=== PATIENT | female | born 1980 | race Caucasian/White ===

== ENCOUNTER 2017-01-20 00:11 | Emergency (ER) | payer OTHER ==
[2017-01-20 00:19] VITALS: BP 122/75
[2017-01-20] MEDS ORDERED: DIPHENHYDRAMINE HCL 50 MG/ML VIAL IV ONE (00:28)
[2017-01-20] MEDS ORDERED: METHYLPREDNISOLONE INJ 125 MG/2 ML SDV IV ONE (00:28)
[2017-01-20] MEDS ORDERED: FAMOTIDINE INJ/PF 20 MG/2 ML SDV IV ONE (00:28)
--- NOTE | 2017-01-20 00:29 | ER Document Report ---
ED Allergic Reaction - General Chief Complaint: Allergic Reaction Stated Complaint: POSSIBLE ALLERGIC REACTION Time Seen by Provider: 01/20/17 00:22 Notes: Patient is a 37-year-old female, at 24 weeks gestation, the comes emergency department for chief complaint of an allergic reaction. She states she has a rash over her arms, abdomen, back, neck, and face. She states that she got the sensation of irritation in her throat as well just prior to arrival. She states the rash is actually started to reduce from before. She denies shortness of breath. She has not taken anything for the rash. She states she thinks she is breaking out in a reaction to hair spray. TRAVEL OUTSIDE OF THE [place] IN LAST 30 DAYS: No - Related Data Allergies/Adverse Reactions: erythromycin base Allergy (Verified 01/20/17 01:39) Penicillins Allergy (Verified 01/20/17 01:39) Past Medical History - General Information source: Patient - Social History Smoking Status: Never Smoker Frequency of alcohol use: None Drug Abuse: None Lives with: Family Family History: Reviewed & Not Pertinent Patient has suicidal ideation: No Patient has homicidal ideation: No - Medical History Medical History: Negative Renal/ Medical History: Denies: Hx Peritoneal Dialysis Surgical Hx: Negative - Immunizations Immunizations up to date: Yes Hx Diphtheria, Pertussis, Tetanus Vaccination: Yes Review of Systems - Review of Systems Constitutional: No symptoms reported EENT: See HPI Cardiovascular: No symptoms reported Respiratory: No symptoms reported Gastrointestinal: No symptoms reported Genitourinary: No symptoms reported Female Genitourinary: No symptoms reported Musculoskeletal: No symptoms reported Skin: See HPI Hematologic/Lymphatic: No symptoms reported Neurological/Psychological: No symptoms reported Physical Exam - Vital signs Vitals: Temp Pulse Resp BP Pulse Ox 98.1 F 71 18 122/75 100 01/20/17 00:17 01/20/17 00:17 01/20/17 00:17 01/20/17 00:17 01/20/17 00:17 Interpretation: Normal - General General appearance: Alert, Anxious In distress: None - HEENT Head: Normocephalic, Atraumatic Eyes: Normal Conjunctiva: Normal Extraocular movements intact: Yes Eyelashes: Normal Pupils: PERRL Ears: Normal External canal: Normal Tympanic membrane: Normal Sinus: Normal Nasal: Normal Mouth/Lips: Other - There is minimal swelling noted at the edge of the right upper lip, no tongue swelling, no uvular edema, no soft tissue swelling of the pharynx, otherwise no facial swelling noted Mucous membranes: Normal Pharynx: Normal Neck: Normal - Respiratory Respiratory status: No respiratory distress Chest status: Nontender Breath sounds: Normal Chest palpation: Normal - Cardiovascular Rhythm: Regular Heart sounds: Normal auscultation Murmur: No - Abdominal Inspection: Normal, Gravid female Distension: No distension Bowel sounds: Normal Tenderness: Nontender. No: Tender, Guarding Organomegaly: No organomegaly - Back Back: Normal, Nontender - Extremities General upper extremity: Normal inspection, Nontender, Normal color, Normal ROM , Normal temperature General lower extremity: Normal inspection, Nontender, Normal color, Normal ROM , Normal temperature, Normal weight bearing. No: Dev's sign - Neurological Neuro grossly intact: Yes Cognition: Normal Orientation: AAOx4 [place] Coma Scale Eye Opening: Spontaneous Khushi Coma Scale Verbal: Oriented [place] Coma Scale Motor: Obeys Commands [place] Coma Scale Total: 15 Speech: Normal Motor strength normal: LUE, RUE, LLE, RLE Sensory: Normal - Psychological Associated symptoms: Normal affect, Normal mood - Skin Skin Temperature: Warm Skin Moisture: Dry Skin Color: Normal Skin irregularity: Rash - Scattered urticaria over the neck, back, abdomen, and arms Course - Re-evaluation Re-evalutation: Patient was scattered urticaria, she also has minimal swelling of the right upper lip, airway is clear, lungs clear, patient is anxious but otherwise well- appearing. I discussed with patient, patient will be given Solu-Medrol, Benadryl, Pepcid, discussed that patient will be very closely evaluated and if she worsens in any way with any facial swelling or oral swelling that she will be immediately given epinephrine despite for her own safety. Patient states agreement with this plan. Discussed with Dr. Ansari. Patient monitored closely. She was monitored for over 3 hours in the emergency department. I reevaluated her 4 more times. She had resolution of the swelling of the upper lip, rash almost completely disappeared, symptoms of itching resolved. Patient is asking to leave now. I discussed treatment, and discussed follow-up, discussed return precautions in detail, patient states she will return immediately if she has return of symptoms or any new concerning symptoms. - Vital Signs Vital signs: Temp Pulse Resp BP Pulse Ox 98.1 F 71 18 122/75 99 01/20/17 00:17 01/20/17 00:17 01/20/17 00:17 01/20/17 00:17 01/20/17 03:45 Discharge - Discharge Clinical Impression: Hives, Facial swelling Allergic reaction Qualifiers: Encounter type: initial encounter Qualified Code(s): T78.40XA - Allergy, unspecified, initial encounter Condition: Stable Disposition: HOME, SELF-CARE Additional Instructions: The exact cause of your allergic reaction is uncertain. Please take the prednisone as prescribed, take the Zyrtec and Pepcid as prescribed for 1 week. Follow-up with primary care. You may need referral for allergy testing. Return immediately if he develop any concerning or worsening symptoms including difficulty breathing or swallowing, swelling of the face, or any other concerning symptoms. Prescriptions: Cetirizine HCl [Zyrtec 10 mg Tablet] 1 tab PO DAILY #30 tablet Famotidine [Pepcid 20 mg Tablet] 20 mg PO DAILY #12 tablet Prednisone [Deltasone 10 mg Tablet] 10 mg PO ASDIR PRN #21 tablet PRN Reason:
== END 2017-01-20 04:05 | disposition home or self-care (01) ==
LOC: ER 00:11
DX: L50.9 Urticaria, unspecified (principal); R22.0 Localized swelling, mass and lump, head; T78.40XA Allergy, unspecified, initial encounter; Z3A.24 24 weeks gestation of pregnancy
CPT/HCPCS: 99283; 96374; 96375; J1200; J2930; S0028